=== PATIENT | male | born 1980 | race Hispanic/Latino ===

== ENCOUNTER 2017-09-27 18:32 | Emergency (ER) | payer SELFPAY ==
[~2017-09-27] VITALS: Ht 165.1 cm; Wt 70.3 kg
[2017-09-27 19:07] LABS: HEMOGLOBIN 16.1 G/DL (12.5-16.6); MCHC 35.8 G/DL (30.0-36.0); MCV 86.7 FL (86-99); PLATELET COUNT 265 K/uL (156-360); RBC DIS.WIDTH-CV 12.9 % (11.8-14.6); RBC DIS.WIDTH-SD 40.3 % (39-53); RED BLOOD COUNT 5.19 M/uL (4.00-5.50); WHITE BLOOD COUNT 9.8 K/uL (4.1-10.2)
[2017-09-27 19:18] LABS: ALBUMIN 4.4 g/dL (3.2-4.8); CHLORIDE 106 mEq/L (99-109); POTASSIUM 4.9 mEq/L (3.7-5.4); SODIUM 144 mEq/L (136-147)
[2017-09-27 19:21] LABS: GLUCOSE 103 mg/dL (70-99)
[2017-09-27 19:23] LABS: TOTAL BILIRUBIN 0.6 mg/dL (0.0-1.0)
[2017-09-27 19:24] LABS: ALKALINE PHOSPHATASE 83 IU/L (3-129); CREATININE 0.9 mg/dL (0.6-1.3)
[2017-09-27 19:25] LABS: UREA NITROGEN (BUN) 14 mg/dL (9-23)
[2017-09-27 19:26] LABS: AST (GOT) 23 IU/L (2-34); GFR ESTIMATE (CALCULATED) > 59 mL/min/ (58.99-99999)
[2017-09-27 19:27] LABS: ALT (GPT) 28 IU/L (3-49)
[2017-09-27 19:51] LABS: APPEARANCE CLEAR ((CLEAR)); BILIRUBIN NEGATIVE; BLOOD NEGATIVE; COLOR STRAW ((YELLOW)); GLUCOSE (STRIP) NEGATIVE; KETONES NEGATIVE; LEUKOCYTES NEGATIVE; NITRITE NEGATIVE; PROTEIN (STRIP) NEGATIVE; SPECIFIC GRAVITY 1.013 (1.000-1.030); UCUL ADDED? NO; UROBILINOGEN 0.2 MG/DL (0.2-1.0)
[2017-09-27] MEDS ORDERED: MOTRIN600 MG PO (22:02)
[2017-09-27] MEDS ORDERED: FLEXERIL10 MG PO (22:02)
[2017-09-27 22:15] VITALS: BP 138/85
== END 2017-09-27 22:27 | disposition home or self-care (01) ==
LOC: EME 18:32
DX: M54.5 Low back pain (principal)
CPT/HCPCS: 74176; 80053; 81003; 85027; 99281; 99284